=== PATIENT | female | born 1970 | race Two or more races ===

== ENCOUNTER 2016-05-02 21:37 | Emergency (ER) | payer MEDICAID, OTHER ==
[2016-05-02] MEDS ORDERED: OXYCODONE HCL 5 MG TABLET ONE (22:54)
[2016-05-02] MEDS ORDERED: KETOROLAC TROMETHAMINE 30 MG/ML 1 ML VIAL ONE (22:54)
[2016-05-02] MEDS ORDERED: ACETAMINOPHEN 500 MG TABLET ONE (22:54)
== END 2016-05-03 00:13 | disposition home or self-care (01) ==
LOC: ED 21:37
DX: M54.41 Lumbago with sciatica, right side (principal)
CPT/HCPCS: 99283 ×2; 96372; A9270 ×2; J1885